=== PATIENT | female | born 1965 | race Caucasian/White ===

== ENCOUNTER → 2016-06-19 | Outpatient (CLI) | payer OTHER ==
[2016-06-19 11:15] LABS: BASO % 0.5 % (0.0-1.0); EOS # 0.1 10*3/uL (0.0-0.4); EOS % 1.3 % (1.0-4.0); HEMATOCRIT 40.8 % (37.0-47.0); LYMPH # 2.2 10*3/uL (1.3-4.4); LYMPH % 27.1 % (27.0-41.0); MEAN CELL VOLUME 83.3 fl (81.0-99.0); MEAN CORPUSCULAR HGB 26.5 pg (27.0-31.0); MEAN CORPUSCULAR HGB CONC 31.9 g/dl (33.0-37.0); MEAN PLATELET VOLUME 11.3 fl (9.6-12.3); MONO # 0.5 10*3/uL (0.1-1.0); MONO % 6.8 % (3.0-9.0); NEUT # 5.1 10*3/uL (2.3-7.9); NEUT % 63.9 % (47.0-73.0); PLATELET COUNT AUTOMATED 302 10*3/uL (130-400); RED CELL DISTRI WIDTH 13.6 % (0-14.5)
[2016-06-19 11:38] LABS: ALBUMIN 3.5 gm/dl (3.1-4.5); BUN 13 mg/dl (7-24); CARBON DIOXIDE 30 mmol/L (21-32); CHLORIDE 100 mmol/L (98-107); GLUCOSE 174 mg/dL (65-99); POTASSIUM 4.3 mmol/L (3.5-5.1); SODIUM 138 mmol/L (136-145); TRIGLYCERIDES 123 mg/dl (<150); VLDL CHOLESTEROL 25 mg/dL (6-40)
[2016-06-19 11:47] LABS: ALKALINE PHOSPHATASE 78 U/L (45-117); BILIRUBIN, TOTAL 0.3 mg/dl (0.2-1.0); CHOLESTEROL 171 mg/dL (<200); EST GLOM FILT AFRICAN AMERICAN > 60 ml/min; FREE T4 1.22 ng/dl (0.76-1.46); HDL CHOLESTEROL 54 mg/dl (40-60); LDL CHOLESTEROL 92 mg/dL (9-159); SGOT/AST 13 IU/L (3-35); SGPT/ALT 23 U/L (12-78); TOTAL PROTEIN 7.4 gm/dL (6.4-8.2)
== END | disposition home or self-care (01) ==
LOC: CARD 05-19 08:30 → LAB 09:31
PROVIDERS: Family Medicine
DX: E11.65 Type 2 diabetes mellitus with hyperglycemia (principal); I10 Essential (primary) hypertension; E78.5 Hyperlipidemia, unspecified; R01.1 Cardiac murmur, unspecified; I34.0 Nonrheumatic mitral (valve) insufficiency; I07.1 Rheumatic tricuspid insufficiency

== ENCOUNTER 2017-01-03 19:21 | Emergency (ER) | payer OTHER ==
[~2017-01-03] VITALS: Ht 157.4 cm; Wt 103.9 kg
[2017-01-03 20:36] LABS: BASO % 0.5 % (0.0-1.0); EOS # 0.1 10*3/uL (0.0-0.4); EOS % 1.6 % (1.0-4.0); HEMATOCRIT 39.6 % (37.0-47.0); HEMOGLOBIN 12.5 g/dl (12.0-16.0); LYMPH # 2.7 10*3/uL (1.3-4.4); MEAN CORPUSCULAR HGB 25.9 pg (27.0-31.0); MEAN CORPUSCULAR HGB CONC 31.6 g/dl (33.0-37.0); MEAN PLATELET VOLUME 10.7 fl (9.6-12.3); MONO # 0.7 10*3/uL (0.1-1.0); MONO % 8.8 % (3.0-9.0); NEUT # 4.5 10*3/uL (2.3-7.9); NEUT % 55.9 % (47.0-73.0); PLATELET COUNT AUTOMATED 279 10*3/uL (130-400); RED BLOOD COUNT 4.83 10*6/uL (4.10-5.10); RED CELL DISTRI WIDTH 13.2 % (0-14.5)
[2017-01-03 20:53] LABS: ALBUMIN 3.1 gm/dl (3.1-4.5); ALKALINE PHOSPHATASE 96 U/L (45-117); BUN 12 mg/dl (7-24); CHLORIDE 100 mmol/L (98-107); CREATININE 0.72 mg/dL (0.55-1.02); LIPASE 133 U/L (73-393); POTASSIUM 4.5 mmol/L (3.5-5.1); SGOT/AST 13 IU/L (3-35); SGPT/ALT 24 U/L (12-78); SODIUM 134 mmol/L (136-145); TOTAL PROTEIN 6.6 gm/dL (6.4-8.2)
[2017-01-03 20:55] LABS: TROPONIN I < 0.015 ng/ml (<0.045)
[2017-01-03 21:03] LABS: BILIRUBIN NEGATIVE (NEGATIVE); BLOOD NEGATIVE (NEGATIVE); CLARITY CLEAR (CLEAR); COLOR YELLOW (YELLOW); GLUCOSE 3+ (NEGATIVE); KETONE NEGATIVE (NEGATIVE); LEUKO ESTERASE NEGATIVE (NEGATIVE); NITRITE NEGATIVE (NEGATIVE); SPECIFIC GRAVITY <= 1.005 (1.005-1.030); UROBILINOGEN 0.2 E.U./dl (0.2-1.0)
[2017-01-03 21:10] LABS: BACTERIA TRACE
[2017-01-03 21:57] VITALS: BP 123/74
== END 2017-01-04 00:04 | disposition home or self-care (01) ==
LOC: ED 19:21
PROVIDERS: Emergency Medicine Emergency Medical Services
DX: E11.65 Type 2 diabetes mellitus with hyperglycemia (principal); I10 Essential (primary) hypertension; Z90.49 Acquired absence of other specified parts of digestive tract; Z98.890 Other specified postprocedural states; Z91.040 Latex allergy status; Z88.8 Allergy status to other drugs, medicaments and biological substances

== ENCOUNTER 2017-11-01 01:02 | Emergency (ER) | payer OTHER ==
[~2017-11-01] VITALS: Ht 157.4 cm; Wt 97.5 kg
--- NOTE | ~2017-11-01 | EKG ---
[place], [place] ELECTROCARDIOGRAM REPORT NAME: TRACEE CAI UNIT #: [id number] ROOM: DOCTOR: EPIPHANY DRAFT REPORT BIRTHDATE: [birth year] [facility] Test Date: 2017-11-01 Test Time: 02:07:44 Pat Name: TRACEE CAI Department: ER Room: Gender: F Cork Mixer: : 1965 Requested By: HORTENCIA DUBOIS Order Number: [id number] Reading MD: Keith Mosqueda MD Measurements Intervals [place] Rate: 90 P: 52 NM: 177 QRS: 6 QRSD: 92 T: 56 QT: 373 QTc: 457 Interpretive Statements Sinus rhythm Anteroseptal infarct, old Electronically Signed On 11-01-2017 10:52:04 PDT by Keith Mosqueda MD CM:EKGRPT:ELECTROCARDIOGRAM REPORT [id number] 1052 HORTENCIA DUBOIS MD EPIPHANY DRAFT REPORT HORTENCIA DUBOIS MD
[2017-11-01 01:06] VITALS: BP 151/73
[2017-11-01 02:16] LABS: BASO % 0.4 % (0.0-1.0); EOS # 0.1 10*3/uL (0.0-0.4); EOS % 1.3 % (1.0-4.0); HEMATOCRIT 40.8 % (37.0-47.0); LYMPH # 2.2 10*3/uL (1.3-4.4); LYMPH % 22.8 % (27.0-41.0); MEAN CELL VOLUME 84.5 fl (81.0-99.0); MEAN CORPUSCULAR HGB 26.9 pg (27.0-31.0); MEAN CORPUSCULAR HGB CONC 31.9 g/dl (33.0-37.0); MEAN PLATELET VOLUME 10.7 fl (9.6-12.3); MONO # 0.7 10*3/uL (0.1-1.0); MONO % 7.9 % (3.0-9.0); NEUT # 6.3 10*3/uL (2.3-7.9); NEUT % 67.3 % (47.0-73.0); PLATELET COUNT AUTOMATED 260 10*3/uL (130-400); RED BLOOD COUNT 4.83 10*6/uL (4.10-5.10); RED CELL DISTRI WIDTH 13.5 % (0-14.5); WHITE BLOOD COUNT 9.4 10*3/uL (4.8-10.8)
[2017-11-01 02:31] LABS: ALBUMIN 3.2 gm/dl (3.1-4.5); ALKALINE PHOSPHATASE 92 U/L (45-117); BUN 8 mg/dl (7-24); CHLORIDE 106 mmol/L (98-107); CREATININE 0.73 mg/dL (0.55-1.02); LIPASE 107 U/L (73-393); POTASSIUM 4.2 mmol/L (3.5-5.1); SGOT/AST 17 IU/L (3-35); SGPT/ALT 22 U/L (12-78); SODIUM 141 mmol/L (136-145); TOTAL PROTEIN 7.1 gm/dL (6.4-8.2)
[2017-11-01] MEDS ORDERED: ZITHROMAX250 MG PO (03:26)
[2017-11-01] MEDS ORDERED: PREDNISONE10 MG PO (03:26)
[2017-11-01] MEDS ORDERED: Phenergan6.25 MG/5 PO (03:26)
== END 2017-11-01 04:05 | disposition home or self-care (01) ==
LOC: ED 01:02
PROVIDERS: Emergency Medicine Emergency Medical Services
DX: J20.9 Acute bronchitis, unspecified (principal); J01.90 Acute sinusitis, unspecified; E11.9 Type 2 diabetes mellitus without complications; Z91.040 Latex allergy status

== ENCOUNTER 2018-05-02 21:40 | Emergency (ER) | payer OTHER ==
[~2018-05-02] VITALS: Ht 157.4 cm; Wt 104.3 kg
[~2018-05-02 21:40] MED LIST: PREDNISONE10 MG PO; Phenergan6.25 MG/5 PO; ZITHROMAX250 MG PO
[2018-05-02 21:43] VITALS: BP 142/72
[2018-05-02] MEDS ORDERED: PREDNISONE20 M1 PO (22:17)
== END 2018-05-02 22:19 | disposition home or self-care (01) ==
LOC: ED 21:40
DX: S40.862A Insect bite (nonvenomous) of left upper arm, initial encounter (principal); S40.861A Insect bite (nonvenomous) of right upper arm, initial encounter; L50.8 Other urticaria; Z90.49 Acquired absence of other specified parts of digestive tract; Z98.890 Other specified postprocedural states; Z79.899 Other long term (current) drug therapy; Z91.040 Latex allergy status; W57.XXXA Bitten or stung by nonvenomous insect and other nonvenomous arthropods, initial encounter; Y93.89 Activity, other specified; Y92.89 Other specified places as the place of occurrence of the external cause; Y99.9 Unspecified external cause status

== ENCOUNTER 2018-06-28 13:55 | Inpatient (IN) | payer OTHER ==
[~2018-06-28] VITALS: Ht 157.4 cm; Wt 104.3 kg
--- NOTE | ~2018-06-28 | PR ---
[place], [place] PROGRESS NOTE NAME: TRACEE CAI UNIT #: [id number] ROOM: 310 DOCTOR: CHERYL HOPKINS MD BIRTHDATE: [birth year] DOS: 07/03/2018 CHIEF COMPLAINT: "I think I'm feeling a little better." SUMMARY OF THE VISIT: The patient was interviewed in the dining area. She had already eaten her breakfast and was engaging in conversation with several female peers. She stopped this conversation to engage with me and stated that she is sleeping a little better. She is still having the horrible leg and foot cramps that are very bothersome to her. Otherwise, she reports that she feels that her mood is beginning to lift and she is becoming more hopeful that the future will hold better things for her. MENTAL STATUS: She is alert and oriented with some time gaps, but overall fairly intact. Mood does seem to be now trending towards euthymia. Affect is more appropriate. There is no joe or hypomania. No gross psychosis. Short term, intermediate, and long-term memory for the most part are intact. PLAN: I will continue her current psychotropics. I will increase her Neurontin from 100 mg at bedtime to 100 t.i.d. believing that this will be much more effective as a pain relief issue and make her more comfortable. Regarding the cramping, I defer to the hospitalist. Engage her in individual and taylor milieu activity, returning to the least restrictive environment when psychiatrically stable. CHERYL HOPKINS MD CM:PNTRANS [id number] CHERYL HOPKINS MD 07/03/182108 interface
--- NOTE | ~2018-06-28 | PR ---
[place], [place] PROGRESS NOTE NAME: TRACEE CAI UNIT #: [id number] ROOM: 310 DOCTOR: CHERYL HOPKINS MD BIRTHDATE: [birth year] DOS: 07/06/2018 INTERVAL NOTE CHIEF COMPLAINT: "I think I am feeling a little better, thank you for everything you have done for me." SUMMARY OF THE VISIT: The patient was interviewed as she was finishing her breakfast. She engaged readily in conversation, reporting that overall her sleep and appetite have normalized and that she is feeling much better. She still complains of some minor pain issues, but otherwise notes no other issues. MENTAL STATUS: She is alert and oriented with mild time gaps. Mood does seem to be strongly trending towards euthymia. I do not see the presence of hypomania or joe and likewise do not see the presence of auditory or visual hallucinations, delusions or paranoia. Short-term memory has just mild gaps, but overall she is fairly well intact. PLAN: I will increase her Neurontin from 100 mg t.i.d. to 200 mg t.i.d. to further stabilize her mood, reduce anxiety and combat chronic pain issues, engage in individual and taylor milieu activity, returning to the least restrictive environment when psychiatrically stable. CHERYL HOPKINS MD CM:PNTRANS 0830 [id number] CHERYL HOPKINS MD 07/06/18 1406 interface
--- NOTE | ~2018-06-28 | PR ---
[place], [place] PROGRESS NOTE NAME: TRACEE CAI UNIT #: [id number] ROOM: 309 DOCTOR: CHERYL HOPKINS MD BIRTHDATE: [birth year] DOS: 07/01/2018 CHIEF COMPLAINT: "Oh, I just feel so discombobulated. I can't think my memory is not right and I'm not sleeping." SUMMARY OF THE VISIT: The patient was interviewed as she was sitting in the dining area with several female peers. She engaged readily in conversation. She reports to me that she could not tell me exactly when she got here and was having a hard time formulating her thoughts, which she states has been happening more and more helping lead to her admission ultimately to the hospital. She does report that she is not sleeping well and was not sleeping well at home. Additionally, she went at length to discuss her current living situation and is very hopeful that between her daughter's help and criminal justice social worker help that a more pleasant living situation will be able to be provided for her. She convincingly denies any medication side effects at the present time. MENTAL STATUS: She is alert and oriented to self, place, not necessarily time. She is rather fragmented and disjointed, very anxious, and almost seemed to be hyperventilating at one point. There was no hypomania or joe. There were no overt auditory or visual hallucinations. There are memory gaps noted, which could be related to her anxiety level. PLAN: I will go ahead and add Atarax 25 mg t.i.d. as a non-addictive antianxiety agent. I will add Rozerem 8 mg at bedtime p.r.n. as a non-addicting sleep aid, but I do not want to utilize too much medication at this point because she does have the Cymbalta 60 mg at bedtime also on board. We will engage in individual and taylor milieu activity, returning to the least restrictive environment when psychiatrically stable. CHERYL HOPKINS MD CM:PNTRANS [id number] CHERYL HOPKINS MD 07/01/18 234 interface
--- NOTE | ~2018-06-28 | PR ---
[place], [place] PROGRESS NOTE NAME: TRACEE CAI UNIT #: [id number] ROOM: 310 DOCTOR: CHERYL HOPKINS MD BIRTHDATE: [birth year] DOS: 07/02/2018 CHIEF COMPLAINT: "I am still not sleeping and if I have to go back to that place, I might as well be ." SUMMARY OF THE VISIT: The patient was interviewed as she was sitting in the dining area. She had already eaten her breakfast. She engaged readily in conversation. She was mainly fixated on the fact that her anxiety and sleep still remain rather poor, although improving. She also was very fixated on not returning back to her current living situation. She is aware that director social welfare here in conjunction with her daughter are actively k at finding her options and is comforted somewhat by this fact. She convincingly denies medication side effects. MENTAL STATUS: She remains alert and oriented to person, place and time. Mood does still seem to be depressed with anxious overtones. She does still endorse suicidal thoughts. There is no hypomania, joe or psychosis. Memory for the most part is fully intact. PLAN: I will go ahead and continue to increase her psychotropic regimen, increasing the Cymbalta from 60 mg a day to 90 mg a day given in a 30 mg dose in the morning and 60 mg at bedtime. I will increase her Atarax from 25 mg 3 times daily to 50 mg 3 times daily in an effort to curb her anxiety level. The patient continues to complain of significant Charley horses in her calves and in her feet. I will check a magnesium level this morning and defer to the hospitalist for any further management. We will engage her in individual and taylor milieu activity, returning to the least restrictive environment when psychiatrically stable. CHERYL HOPKINS MD CM:PNTRANS [id number] CHERYL HOPKINS MD 07/03/18 0013 interface
--- NOTE | ~2018-06-28 | PR ---
[place], [place] PROGRESS NOTE NAME: TRACEE CAI UNIT #: [id number] ROOM: 309 DOCTOR: MATY ARAIZA CNP BIRTHDATE: [birth year] DOS: 06/30/2018 CHIEF COMPLAINT: "I am sorry, but I don't remember your name." SUMMARY OF VISIT: The patient was interviewed as she sat in the dining room. She engaged readily in conversation with me. The patient reports that she has no current suicidal ideation; however, she knows if she has to go back to her living arrangements, she will be suicidal again and plans to take a bunch of pills. The patient reports that she slept well and that her appetite has been good. Staff reports that the patient has had no behaviors. MENTAL STATUS EXAMINATION: The patient is alert and oriented to person, place and time. She is pleasant and cooperative. No joe or hypomania noted. No delusions or paranoia noted. No psychotic symptoms noted. No auditory or visual hallucinations noted. Her mood is more euthymic today. Affect is appropriate. Short and long-term memories are intact. PLAN: I increased the patient's Cymbalta to 60 mg at bedtime, also have put in a consult for Dr. Basurto to meet with the patient. We will continue to encourage the patient to engage in individual and taylor milieu activity, continue fall and safety precautions. Plan is to return the patient to the least restrictive environment when she is considered psychiatrically stable. The patient has been taken off of line of sight due to the fact that she is not currently suicidal. Maty Araiza CNP CM:PNTRANS [id number] MATY ARAIZA CNP 06/30/182240 interface
--- NOTE | ~2018-06-28 | WRIGHTHP ---
[place], [place] PATIENT HISTORY AND PHYSICAL EXAM [id number] #: [id number] ROOM: 309 DOCTOR: MATY ARAIZA CNP BIRTHDATE: [birth year] DOS: 06/29/2018 HISTORY AND PHYSICAL FOR INITIAL PSYCHIATRIC EVALUATION CHIEF COMPLAINT: "I don't feel suicidal; however, I know I would still take my oxycodone." HISTORY OF PRESENT ILLNESS: This is a 53-year-old white female who presented to the Emergency Room with complaints of feeling depressed and having suicidal ideations periodically over the last few weeks. The patient had shared her thoughts with her daughter who recommended that she come to the Emergency Room for evaluation. The patient reported that over the past month, her depression has increased as she feels her medication is not working. She reports that she tried to get in to her psychiatrist, but was unable to get an appointment until August. She reported that she had a recent loss of emotional support and has had issues with her landlord. She does report that she does not consistently take her medication as prescribed. The patient reports that she feels less anxious at this time; however, she knows that she has to return to her apartment and she knows that this will cause her increased depression and anxiety. She reports that her daughter is trying to find her different living arrangements. The patient was admitted to the Behavioral Health Unit to rule out any further organic factors and attempt to stabilize her on medication. The patient will be encouraged to engage in individual and taylor milieu activity and to return to the least restrictive environment when she is considered psychiatrically stable. PAST MEDICAL AND SURGICAL HISTORY: Remarkable for hyperglycemia, type 2 diabetes, acute sinusitis, bronchitis, cholecystectomy, left eye surgery, tonsil and adenoidectomy and a bowel resection. SOCIAL HISTORY: The patient does socially use alcohol. She denies any illicit drug use. It is unclear whether she uses tobacco products or not. STRENGTHS: The patient is ambulatory and has good verbal skills. WEAKNESSES: Poor coping skills, recent loss of emotional support. MENTAL STATUS: The patient is alert and oriented to person, place and time. She is pleasant and cooperative. No overt joe or hypomania noted. No delusions or paranoia noted. No psychotic symptoms noted. No auditory or visual hallucinations noted. The patient's mood is depressed. Her affect is congruent with mood. Short and long-term memory are intact. Thought process is normal. Her insight and judgment are fair. DIAGNOSIS: Major depressive disorder, recurrent. PLAN: I have discontinued her trazodone and Prozac. Cymbalta 30 mg at bedtime will be started this evening. I will start vitamin D 50,000 units once weekly due to low vitamin D level. Hemoglobin A1c is elevated at 11.3. We will have the medical doctor for followup on this. We will consult Dr. Basurto for psychological counseling. We will encourage the patient to engage in individual [place], [place] PATIENT HISTORY AND PHYSICAL EXAM NAME: TRACEE CAI UNIT #: [id number] ROOM: [facility] DOCTOR: MATY ARAIZA CNP BIRTHDATE: [birth year] and taylor milieu and activity. We will continue fall and safety precautions. Plan is to return the patient to the least restrictive environment when she is considered psychiatrically stable. Maty Araiza CNP CM:HISPHYS:PATIENT HISTORY AND PHYSICAL EXAMINATION [id number] MATY ARAIZA CNP 06/29/18 1234 interface
--- NOTE | ~2018-06-28 | PR ---
[place], [place] PROGRESS NOTE NAME: TRACEE CAI UNIT #: [id number] ROOM: 310 DOCTOR: CHERYL HOPKINS MD BIRTHDATE: [birth year] DOS: 07/05/2018 CHIEF COMPLAINT: "Will you please call my daughter so she knows what's happening. I get things so mixed up in my head." SUMMARY OF THE VISIT: The patient was interviewed while she was sitting with several female peers. She had already eaten her breakfast. She reports that she is sleeping well and eating well and does feel that the current medication regimen is much more effective than the previous one. She voices no side effects from the medications. MENTAL STATUS: She is alert and oriented with minor time gaps. Mood does seem to be strongly trending towards euthymia. Affect is much more appropriate. There are no suicidal thoughts, homicidal thoughts, or self-injurious thoughts. There is no hypomania or joe. There are no gross psychotic symptoms. Short term memory has some mild gaps, otherwise she is relatively intact. PLAN: I will maintain her current psychotropic and continue to monitor for risk, benefit. I will renew her p.r.n. Ativan should she require intervention. custodial services manager will reach out to the patient's daughter to further discuss discharge planning and aftercare arrangements. Will engage in individual and taylor milieu activity, returning then to the least restrictive environment when psychiatrically stable. CHERYL HOPIKNS MD CM:PNTRANS [id number] CHERYL HOPKINS MD 07/05/18 1121 interface
--- NOTE | ~2018-06-28 | CON ---
[place], [place] REPORT OF CONSULTATION NAME: [id number] UNIT #: [id number] ROOM: 309 DOCTOR: PHD KATHIA BASURTO BIRTHDATE: [birth year] DOS: 07/01/2018 HISTORY OF PRESENT ILLNESS: The patient is a 53-year-old female referred by Dr. Easton for counseling. At the present time, the patient is on the [facility] Unit at [facility]. She lives alone and does not work. She has two daughters. She denied alcohol, tobacco and illegal drug use. PAST MEDICAL HISTORY: Chronic constipation, essential hypertension, GERD, hyperlipidemia, morbid obesity, type 2 diabetes. MEDICATIONS: Vitamin D, Neurontin, Glucophage, Vistaril, Cymbalta, Esidrix, Zocor, Zestril, Prilosec, Humalog, Lantus, Tylenol, Geodon, Rozerem, Ativan. The patient was sitting comfortably, in no apparent distress. She is awake, alert and oriented to person, place and generally to time. Mood was depressed and affect was blunted. She denied current suicidal ideation, plan and intent, but stated that she is very nervous about returning home due to issues with her landlord and could not guarantee she would not overdose on her medications. She denied homicidal ideation. Speech and language within normal limits conversationally. Thought process was circumstantial. There is no evidence of hallucinations or delusions. She reports grieving over her emotional support dog as well as a friend who 3 years ago. She also is concerned about one of her daughters and about returning home and the possibility of having to relinquish her cats at the request of her landlord. She has a counselor in [place] and also follows up with her. She also follows up there for her psychiatric medications as well. Discussed way she can set appropriate boundaries and processed her grief. Utilized CBT and supportive therapy interventions, the patient appeared to benefit. DIAGNOSIS: Major depressive disorder, recurrent, severe. PLAN: I will continue to follow the patient while she is on the [facility] Unit as needed. Maren Basurto, PhD CM:CONSTR:REPORT OF CONSULTATION 1728 07/02/18 0509 interface
--- NOTE | ~2018-06-28 | DS ---
[place], [place] DISCHARGE SUMMARY [id number] UN[facility] #: [id number] ROOM: 310 DOCTOR: CHERYL HOPKINS MD BIRTHDATE: [birth year] DOS: 07/07/2018 CHIEF COMPLAINT: "I don't feel suicidal. However, I know I would still take my oxycodone." HISTORY OF PRESENT ILLNESS: This is a 53-year-old white female who presented to the Emergency Room at [facility] with feelings of increased depression with suicidal ideation. This has been occurring over the last several weeks. The patient shared her thoughts with her daughter who recommended that the patient come to the Emergency Room for evaluation. Over the last month, the patient reports that her depression has worsened in intensity and her current medication regimen is not working. She tried to get an appointment with her current psychiatrist, but was unable to do so. She reports multiple losses and poor emotional supports other than her daughter. The patient reports poor sleep and appetite, anergia, anhedonia, hopeless, helpless feelings, crying spells, and inability to cope. The patient was admitted to rule out organic factors and to stabilize on medication. SUMMARY OF HOSPITAL COURSE: The patient had her current regimen of medications discontinued. This included trazodone and Prozac due to ineffectiveness. Cymbalta 30 mg at bedtime was started. Vitamin D was also started because she had a low vitamin D level on admission. The Cymbalta dose was gradually increased from 30 mg at bedtime to 30 mg in the morning and 60 mg at bedtime with excellent results. This impacted positively on her depression, her pain and her anxiety. Additionally, Vistaril 50 mg 3 times daily was utilized to decrease her anxiety with the nonaddicting agent and Rozerem 8 mg at bedtime was utilized to further aid sleep. With this combination of medication, the patient's mood improved dramatically. Sleep and appetite normalized. She was able to attend to her ADLs. She engaged readily in all forms of activities and therapeutic work on the unit. She voiced positive plans for the future and was anxious to be able to return back home. The patient convincingly denied suicidal thoughts, homicidal thoughts or any self-injurious thoughts. MENTAL STATUS EXAMINATION UPON DISCHARGE: The patient is alert and oriented to person, place, very approximate to time. Mood does seem to be strongly trending towards euthymia. Affect is much more appropriate. There is no joe, hypomania or psychosis. As mentioned previously, there are no suicidal, homicidal, or self-injurious thoughts. There are no medication side effects. DISCHARGE DIAGNOSES: Major depression, recurrent, severe; dysthymic disorder. DISPOSITION: All of her prescriptions have been e-scribed to [facility]. At the time of discharge, she was medically and psychiatrically stable. [place], [place] DISCHARGE SUMMARY NAME: TRACEE CAI UNIT #: [id number] ROOM: 310 DOCTOR: CHERYL HOPKINS MD BIRTHDATE: [birth year] CHERYL HOPKINS MD CM:DISCHMANDIE [id number] CHERYL HOPKINS MD 07/07/18 1617 interface
--- NOTE | ~2018-06-28 | PR ---
[place], [place] PROGRESS NOTE NAME: TRACEE CAI UNIT #: [id number] ROOM: 310 DOCTOR: CHERYL EASTON MD BIRTHDATE: [birth year] DOS: 07/04/2018 CHIEF COMPLAINT: "I think I am starting to feel a little bit better Dr. Easton." SUMMARY OF THE VISIT: The patient was interviewed as she was sitting in the back of the dining area. She was engaging in conversation with several female peers that were sitting at her table. As I approached, she reached out to shake my hand and engaged readily in conversation. She does seem to be more spontaneous and does seem to be much less depressed. She reports tolerating the current medication regimen well without sedation, somnolence, extrapyramidal symptoms or tardive dyskinesia. MENTAL STATUS: She is alert and oriented with some time gaps. She still has some minor processing difficulty, but this seems to be gradually improving. Mood does seem to be strongly trending towards euthymia. Affect is much more appropriate. There are no symptoms suggestive of hypomania or oje and there are no gross psychotic symptoms. Memory does have mild gaps, but for the most part is intact. PLAN: I will maintain her current psychotropic regimen, continue to engage in individual and taylor milieu activity with the ultimate plan to return to the least restrictive environment when psychiatrically stable. CHERYL EASTON MD CM:PNTRANS 1044 CHERYL EASTON MD 07/04/18 1044 interface
[~2018-06-28 13:55] MED LIST changes: +PREDNISONE20 M1 PO
[2018-06-28 13:56] VITALS: BP 171/87
[2018-06-28 14:54] LABS: BASO % 0.4 % (0.0-1.0); EOS # 0.1 10*3/uL (0.0-0.4); HEMATOCRIT 43.4 % (37.0-47.0); LYMPH # 2.2 10*3/uL (1.3-4.4); LYMPH % 23.9 % (27.0-41.0); MEAN CELL VOLUME 84.9 fl (81.0-99.0); MEAN CORPUSCULAR HGB 27.4 pg (27.0-31.0); MEAN CORPUSCULAR HGB CONC 32.3 g/dl (33.0-37.0); MEAN PLATELET VOLUME 11.5 fl (9.6-12.3); MONO # 0.8 10*3/uL (0.1-1.0); MONO % 8.3 % (3.0-9.0); NEUT # 6.1 10*3/uL (2.3-7.9); NEUT % 66.1 % (47.0-73.0); PLATELET COUNT AUTOMATED 299 10*3/uL (130-400); RED BLOOD COUNT 5.11 10*6/uL (4.10-5.10); RED CELL DISTRI WIDTH 13.1 % (0-14.5); WHITE BLOOD COUNT 9.2 10*3/uL (4.8-10.8)
[2018-06-28 15:00] LABS: BILIRUBIN NEGATIVE (NEGATIVE); BLOOD NEGATIVE (NEGATIVE); CLARITY CLEAR (CLEAR); COLOR YELLOW (YELLOW); GLUCOSE 3+ (NEGATIVE); KETONE NEGATIVE (NEGATIVE); LEUKO ESTERASE NEGATIVE (NEGATIVE); NITRITE NEGATIVE (NEGATIVE); SPECIFIC GRAVITY 1.015 (1.005-1.030)
--- NOTE | 2018-06-28 15:10 | NUR ---
HOME MEDS VERIFIFED WITH MILLIE AT [facility] IN [place]
[2018-06-28 15:15] LABS: BACTERIA 1+
[2018-06-28 15:19] LABS: URINE AMPHETAMINES < 1000 (1000ng/ml); URINE BARBITURATES < 200 (200ng/ml); URINE CANNABINOIDS (THC) < 50 (50ng/ml); URINE COCAINE < 300 (300ng/ml); URINE OPIATES < 300 (300ng/ml)
[2018-06-28 15:20] LABS: ALBUMIN 3.5 gm/dl (3.1-4.5); ALKALINE PHOSPHATASE 118 U/L (45-117); BUN 17 mg/dl (7-24); CHLORIDE 99 mmol/L (98-107); CREATININE 0.86 mg/dL (0.55-1.02); POTASSIUM 4.5 mmol/L (3.5-5.1); SGOT/AST 15 IU/L (3-35); SGPT/ALT 26 U/L (12-78); SODIUM 134 mmol/L (136-145); TOTAL PROTEIN 7.3 gm/dL (6.4-8.2)
[2018-06-28 15:22] LABS: ACETAMINOPHEN (TYLENOL) < 5.0 ug/ml (10-30); ETHYL ALCOHOL < 3.0 mg/dl (<3)
[2018-06-28 15:28] LABS: URINE BENZODIAZEPINES > 200 (200ng/ml); URINE METHADONE < 300 (300ng/ml)
[2018-06-28 15:37] LABS: URINE PHENCYCLIDINE < 25 (25ng/ml)
--- NOTE | 2018-06-28 16:02 | NUR ---
psychiatric assessment: met with client and her daughter, client has been very depressed for about a week, her daughters service dog who stays with her while the daughter works suddenly and client has been very distraught, client is active at [facility] and sees Thierno Ramirez [facility] for her medications and she sees a therapist, she is tearful, no psychosis, she is her own person, she is a&ox4, she is having suicidal thoughts and had a plan to take an overdose, she has never done this before and has no previous suicidal ideation, she has been sad and not sleeping well. she does take her medications, client is fearful that the landlord is going to make her get rid of her other animals and then she said she would kill herself. her daughter is here with her and is supportive. i did speak with manuela kaur here and will refer her to [facility], i did call and spoke with rafael dominguez and she will call me back.
--- NOTE | 2018-06-28 17:56 | NUR ---
PATIENT IN ROOM AT THIS TIME IN NO DISTRESS. GIVEN PILLOW AND BLANKET.
[2018-06-28] MEDS ORDERED: PROZAC20 MG PO (18:15)
[2018-06-28] MEDS ORDERED: TRAZODONE50 MG PO (18:19)
[2018-06-28] MEDS ORDERED: HUMALOG100 UNIT/2 SQ (18:19)
[2018-06-28] MEDS ORDERED: OMEPRAZOLE20 M2 PO (18:20)
[2018-06-28] MEDS ORDERED: LISINOPRIL40 MG PO (18:21)
[2018-06-28] MEDS ORDERED: TRESIBA FL100 UNIT/1 SC (18:22)
[2018-06-28] MEDS ORDERED: METFORMIN ER500 MG PO (18:23)
[2018-06-28] MEDS ORDERED: PRAVACHOL40 MG PO (18:24)
[2018-06-28] MEDS ORDERED: HYDROCHLOROTHIA25 M1 PO (18:24)
[2018-06-28 18:41] VITALS: BP 148/76
--- NOTE | 2018-06-28 18:58 | NUR ---
TRACEE CAI a 53 year old F admitted via wheel chair from the ADMITTING as a voluntary admission. Arrived on unit at 1845. ALLERGIES: LATEX, TRULICITY. Vital signs are: 97.9-84-18 148/76. The client signed the following forms with stated understanding: Authorization For The Release of Medical Information, Clothing List, Consent to Voluntary Admission and Hospitalization, Consent and Release Forms/Receipt of Rights, Acknowledgement of Advance Directive Information, Behavioral Health Consent Form, and Informed Consent of Medications. Admitted under the services of Dr. KELLIE HENDRIX,[facility]. A search was conducted and hazardous articles were removed. Client was oriented to the unit. GIOVANI GREGORY
--- NOTE | 2018-06-28 19:05 | NUR ---
PHYSICAL THERAPY Nursing screen received. PT orders also received. Thank you. Gini Kurtz,PT
[2018-06-28 20:00] VITALS: BP 145/77
--- NOTE | 2018-06-28 20:55 | NUR ---
Talked with Romy Araiza CNP,regarding patient's suicide score and order for line of sight was given.
--- NOTE | 2018-06-29 04:51 | NUR ---
Patient slept approx.5 1/2 hrs throughout shift. Line of sight continued and maintained.
[2018-06-29 06:34] LABS: BASO % 0.4 % (0.0-1.0); EOS # 0.1 10*3/uL (0.0-0.4); EOS % 1.3 % (1.0-4.0); HEMATOCRIT 45.7 % (37.0-47.0); HEMOGLOBIN 14.5 g/dl (12.0-16.0); LYMPH # 3.4 10*3/uL (1.3-4.4); MEAN CELL VOLUME 85.4 fl (81.0-99.0); MEAN CORPUSCULAR HGB 27.1 pg (27.0-31.0); MEAN CORPUSCULAR HGB CONC 31.7 g/dl (33.0-37.0); MEAN PLATELET VOLUME 11.4 fl (9.6-12.3); MONO # 0.8 10*3/uL (0.1-1.0); MONO % 8.3 % (3.0-9.0); NEUT # 4.7 10*3/uL (2.3-7.9); NEUT % 51.8 % (47.0-73.0); PLATELET COUNT AUTOMATED 347 10*3/uL (130-400); RED BLOOD COUNT 5.35 10*6/uL (4.10-5.10); RED CELL DISTRI WIDTH 13.2 % (0-14.5)
[2018-06-29 07:07] LABS: ALBUMIN 3.5 gm/dl (3.1-4.5); ALKALINE PHOSPHATASE 108 U/L (45-117); BUN 17 mg/dl (7-24); CHLORIDE 102 mmol/L (98-107); CHOLESTEROL 200 mg/dL (<200); CREATININE 0.77 mg/dL (0.55-1.02); HDL CHOLESTEROL 41 mg/dl (40-60); LDL CHOLESTEROL 125 mg/dL (9-159); POTASSIUM 3.9 mmol/L (3.5-5.1); SGOT/AST 15 IU/L (3-35); SGPT/ALT 27 U/L (12-78); SODIUM 137 mmol/L (136-145); TOTAL PROTEIN 7.4 gm/dL (6.4-8.2); TRIGLYCERIDES 168 mg/dl (<150); VLDL CHOLESTEROL 34 mg/dL (6-40)
[2018-06-29 07:44] VITALS: BP 139/72
[2018-06-29 08:01] LABS: VITAMIN D, 25-HYDROXY 20.9 ng/mL (30-100)
--- NOTE | 2018-06-29 09:59 | NUR ---
psychosocial hx completed.
--- NOTE | 2018-06-29 10:00 | NUR ---
PHYSICAL THERAPY PATIENT SEEN TODAY ON U AND FOUND TO BE UP AD [facility] WITH NO PT NEEDS IDENTIFIED AT THIS TIME. STAFF CONFIRMS SHE IS MOBILE WITHOUT ISSUES. THANK YOU FOR REFERRAL ESTEPHANIA GALVEZ PT
--- NOTE | 2018-06-29 11:47 | NUR ---
AM GROUP/EXERCISES/GAMES PT ATTENDED AND PARTICIPATED IN ALL ACTIVITY'S. PT PLEASANT AND ON TASK, INTERACTIVE WITH PEERS. PT DID NOT EXPRESS ANY S.I. AT THIS TIME AND WILL CONTINUE TO ATTEND AND PARTICIPATE IN FUTURE GROUP SESSIONS.
--- NOTE | 2018-06-29 16:24 | NUR ---
P: PT ALERT TO PERSON, PLACE, TIME AND SITUATION. PT MED COMPLIANT WITHOUT DIFFICULTY. PT CALM, MOOD IS DEPRESSED. PT DENIES SUICIDAL THOUGHTS AT THIS TIME, VOICES PLAN TO TAKE HYDROCODONE PILLS AT HOME. I: ENCOURAGED PT TO VOICE SUICIDAL THOUGHTS TO STAFF AND CONTRACT FOR SAFETY WITH STAFF, PROVIDED EMOTIONAL SUPPORT AND 1:1 FOR PT TO VOICE FEELINGS R: PT CONVERSES WITH STAFF RE: SUICIDAL THOUGHTS, CONTRACTED FOR SAFETY, PT PLEASANT AND COOPERATIVE WITH STAFF AND PEERS. P: CONTINUE LINE OF SIGHT PER ORDERS, CONTINUE TO PROVIDE EMOTIONAL SUPPORT AND 1:1 FOR PT TO VOICE FEELINGS, ENCOURAGE MED COMPLIANCE AND PROVIDE MED EDUCATION PT AMBULATORY THROUGHOUT UNIT, GAIT STEADY. PT CONTINENT OF BOWEL AND BLADDER.
--- NOTE | 2018-06-29 16:35 | NUR ---
PM GROUP/ANURADHA PAUL/LEISURE SKILLS PT ATTENDED AND PARTICIPATED DURING GROUP. PT PLEASANT AND ON TASK WITH NO S.I. EXPRESSED AT THIS TIME. PT WILL CONTINUE TO ATTEND AND PARTICIPATE IN FUTURE GROUP SESSIONS.
[2018-06-29 20:00] VITALS: BP 139/73
--- NOTE | 2018-06-29 22:00 | NUR ---
Patient alert and oriented x 3. Patient is calm and depressed. Patient denies suicidal ideations at this time. Encouraged patient to tell staff when having those thoughts. No hallucinations/delusions noted at this time. Patient compliant with medications without any difficulty. Provided 1:1 with patient for emotional support. Plan to continue line of sight as per orders. Continue to encourage medication compliance and to provide 1:1 for emotional support. See [facility] flowsheet for further documentation.
--- NOTE | 2018-06-30 00:11 | NUR ---
24 HR chart check completed.
--- NOTE | 2018-06-30 05:28 | NUR ---
Patient slept approx.5 1/2 hrs throughout shift. Line of sight continued and maintained.
[2018-06-30 07:28] VITALS: BP 120/69
--- NOTE | 2018-06-30 09:15 | NUR ---
DR. OSORIO ON FLOOR TO ASSESS PATIENT.
--- NOTE | 2018-06-30 09:54 | NUR ---
P: Patient denies any suicidal ideation. Patients stated that she will start having feelings of suicidal ideation when she goes back to the apartment that she is living in because the landlord does not take care of her house like he takes care of everyone elses house. Pt does have a plan, she states that she would take a whole bottle of Hydrocodone and just go to sleep. Patient did contract for safety with this nurse. Patient stated that she is depressed because there has just been a lot of things in her life that has built up and she just could not take it anymore. I: 1:1 interaction with emotional support provided. Allowed patient to express her feelings and talk about what was on her mind. Provide medications on time with education on each med. Had patient contract for safety due to patient having a plan for suicide. Encourage patient to participate in group activities for socialization and emotional support. R: Patient contracted for safety. Patient stated that she felt so much better after she talked about what made her depressed. Patient expressed how much her daughter is such a great support system. Patient is medication compliant with no difficulties. Patient is attending and participating in group activities. Interacting with peers and staff, laughing and carrying on conversations. P: Continue to have patient contract for safety while she has a suicidal plan and suicidal ideation if she were to leave here. Allow patient to talk about her feelings and express emotions. Encourage patient to continue participating in group therapies and milieu activities. Patient remains to be a Line of Sight due to patients suicide score. Suicide precautions maintained for safety.
--- NOTE | 2018-06-30 12:30 | NUR ---
Shift chart check completed.
[2018-06-30 20:00] VITALS: BP 113/59
--- NOTE | 2018-06-30 22:27 | NUR ---
24 HR chart check completed.
--- NOTE | 2018-06-30 23:13 | NUR ---
P-DEPRESSED, ANXIOUS, SUICIDAL THOUGHTS WHEN DISCHARGED I-PROVIDE 1:1 FOR VENTILATION OF FEELINGS & EMOTIONAL SUPPORT. ASSESS SUICIDAL FEELINGS. DISCUSS ALTERNATE COPING MODES. ADMINISTER MEDICATIONS, MONITOR SLEEP R-MOOD IS DEPRESSED & MILD ANXIETY. STATED THAT SHE IS FEELING BETTER WHILE HERE ON THE UNIT & DENIES PRESENT SUICIDAL FEELINGS WHILE IN THE HOSPITAL & CONTRACTS FOR SAFETY. HOWEVER STATED THAT IF SHE IS DISCHARGED SHE IS AFRAID THAT SHE WILL TRY TO OVERDOSE ON HER MEDICATIONS. UNRECEPTIVE TO DISCUSS ALTERNATE WAYS TO DEAL WITH STRESSORS RELATED TO HER L[place]ORD AT THIS TIME. STATED, "ITS JUST TOO MUCH FOR ME TO DEAL WITH & CAUSES ME TO HAVE ANXIETY". PT IS ALERT & ORIENTED X 4. SPENT LEISURE TIME IN THE DINING ROOM WATCHING TV & INTERACTING WITH PEERS. COMPLIANT TAKING HS MEDICATIONS WHOLE. HS BEDSIDE GLUCOSE WAS 392. RECEIVED 20 UNITS OF COVERAGE. NO SIGNS/SYMPTOMS OF HYPERGLYCEMIA NOTED. P-CONTINUE TO MONITOR & PROVIDE PHYSICAL & EMOTIONAL SUPPORT NEEDED.
--- NOTE | 2018-07-01 01:09 | NUR ---
PT AWAKE AT THIS TIME. REQUESTED & MEDICATED WITH TYLENOL 650 MG FOR C/O MILD BILATERAL FOOT CRAMPING. STATED THAT HER FEET DO THIS ALOT. RATED PAIN 2/10.
--- NOTE | 2018-07-01 05:36 | NUR ---
PT HAS SLEPT PAST 2200 AWAKENING FOR PRN TYLENOL WHICH WAS EFFECTIVE & PT RETURNED TO SLEEP & HAS SLEPT APPROX 5 HOURS.
--- NOTE | 2018-07-01 06:50 | NUR ---
AM BEDSIDE GLUCOSE 139
[2018-07-01 08:05] VITALS: BP 128/72
--- NOTE | 2018-07-01 08:15 | NUR ---
Treatment Plan meeting with Dr. Easton, RN, AT, SW and Informatics Analyst. Plan for discharge at the end of the week. Pt. will return home at discharge.
--- NOTE | 2018-07-01 10:01 | NUR ---
P: Patient stating that she is feeling sad today, a little anxious, and denies any suicidal ideation. Patient states that she will become suicidal if she goes back to her apartment with a plan to take a whole bottle of hydrocodone. Patient did contract for safety. Patient states that she just has had so much happen and she is not happy where she lives. I: 1:1 interaction with emotional support. Assessed for suicidal ideation currently here. Had patient contract for safety. Let patient express why she is feeling sad. Encourage patient to interact with staff and peers. Encourage patient to participate in group activities for socialization and emotional support. Monitor patients food and fluid intake, monitor patient sleep. Encourage patient to use coping skills and relaxation techniques that were taught to her. Provide medications on time with education on each med. R: Patient stated that she felt better after talking out why she has been feeling sad. Patient expressed how she wants to get better for her daughter marianuase she is such a good support system. Patient contract for safety. Patient is eating, sleeping, and drinking adequate amounts of fluids. Patient is utilizing her coping skills and relaxation techniques, patient states that they have been helping. Medication compliant with no difficulties. Participating and interacting in group activities. P: Monitor patients suicidal ideation, plan, and have contract for safety. Monitor intake and sleep schedule. Encourage to continue participating in group activities. Provide medications prescirbed by physician on time with education on each med. 1:1 interaction with emotional support when necessary. Encourage to use coping and relaxation mechanisms when necessary. Q15 minute checks maintained for safety.
--- NOTE | 2018-07-01 10:55 | NUR ---
DR. JAQUEZ ON FLOOR TO ASSESS PATIENT. UPDATE PROVIDED. LET KNOW THAT PATIENT HAS BEEN ASKING FOR TYLENOL EVERY NIGHT FOR NUMB, PAINFUL FEET AND LOWER LEG PAIN. PT STATED THAT SHE USE TO TAKE FLEXEREL AT HOME FOR THE PAIN. PATIENT ALSO STATED THAT SHE HAS NOT HAD A BM SINCE 06/26/18, INFORMED DR. OSORIO; STATED TO GIVE MILK OF MAG PRN AND PRUNE JUICE.
--- NOTE | 2018-07-01 11:03 | NUR ---
PATIENT STATED THAT SHE HAS NOT HAD A BM SINCE 06/26/18. MOM GIVEN PER PRN ORDER. WILL MONITOR FOR EFFECTIVENESS.
--- NOTE | 2018-07-01 11:49 | NUR ---
Spoke with Stefany Tejada [facility] Switchman Supervisor. Stefany and Patient daughter are looking into Adult Day Program for patient to alleviate loneliness. Stefany would like contacted when patient is discharged and provided phone number .
--- NOTE | 2018-07-01 11:57 | NUR ---
AM GROUP/REMINISCING AND SOCIALIZING PT ATTENDED AND PARTICIPATED IN GROUP DISCUSSION. PT OPENLY SHARED MEMORIES OF CHILDHOOD UPBRINGING AND PETS. PT EXPRESSED NO SUICIDAL IDEATIONS DURING GROUP.
--- NOTE | 2018-07-01 13:03 | NUR ---
CLINICALS FAXED TO [facility] AT [phone].
--- NOTE | 2018-07-01 13:28 | NUR ---
Shift chart check completed.
--- NOTE | 2018-07-01 14:30 | NUR ---
Nursing screen received and Occupational THerapy referral received. OT screen completed. Patient is independent in all ADLs and functional mobility. Discharge OT referral. Thank you for this referral. Barbie Weldon OTR/Jasmeet
--- NOTE | 2018-07-01 15:29 | NUR ---
Spoke with Patient Daughter Kelly. Discussed Discharge Plans for the end of the week. Daughter receptive and voiced no questions or concerns.
--- NOTE | 2018-07-01 15:34 | NUR ---
PM GROUP/LEISURE INTERESTS PT ATTENDED AND PARTICIPATED IN GROUP BY PAINTING 2 WATERCOLORS. PT WAS QUIET AND ON TASK AND EXPRESSED NO SUICIDAL IDEATIONS DURING GROUP.
[2018-07-01 20:00] VITALS: BP 121/59; BP 128/72
--- NOTE | 2018-07-01 20:56 | NUR ---
EVENING/CRAFT/MUSIC PT ATTENDED AND PARTICIPATED DURING GROUP. PT PLEASANT AND ON TASK WITH NO S.I. EXPRESSED AT THIS TIME. PT WILL CONTINUIE TO ATTEND AND PARTICIPATE IN FUTURE GROUP SESSIONS.
--- NOTE | 2018-07-01 23:04 | NUR ---
24 HR chart check completed.
--- NOTE | 2018-07-01 23:17 | NUR ---
P-DEPRESSED, ANXIOUS, SUICIDAL THOUGHTS WHEN DISCHARGED I-PROVIDE 1:1 FOR VENTILATION OF FEELINGS & EMOTIONAL SUPPORT. ASSESS SUICIDAL FEELINGS. DISCUSS ALTERNATE COPING MODES. ADMINISTER MEDICATIONS, MONITOR SLEEP R-MOOD IS MILDLY DEPRESSED WITH A BRIGHTER AFFECT & MILD ANXIETY. STATED THAT SHE IS FEELING BETTER WHILE HERE ON THE UNIT & DENIES PRESENT SUICIDAL FEELINGS WHILE IN THE HOSPITAL & CONTRACTS FOR SAFETY. HOWEVER STATED THAT IF SHE IS DISCHARGED SHE IS AFRAID THAT SHE WILL TRY TO OVERDOSE ON HER MEDICATIONS. UNRECEPTIVE TO DISCUSS ALTERNATE WAYS TO DEAL WITH STRESSORS RELATED TO HER L[place] AT THIS TIME. PT IS ALERT & ORIENTED X 4. SPENT LEISURE TIME IN THE DINING ROOM WATCHING TV & INTERACTING WITH PEERS. COMPLIANT TAKING HS MEDICATIONS WHOLE. HS BEDSIDE GLUCOSE WAS 366. RECEIVED 20 UNITS OF COVERAGE. NO SIGNS/SYMPTOMS OF HYPERGLYCEMIA NOTED. P-CONTINUE TO MONITOR & PROVIDE PHYSICAL & EMOTIONAL SUPPORT NEEDED.
--- NOTE | 2018-07-02 05:19 | NUR ---
PT HAS SLEPT PAST 2300
--- NOTE | 2018-07-02 06:24 | NUR ---
AM BEDSIDE GLUCOSE 91
[2018-07-02 07:42] VITALS: BP 122/67
--- NOTE | 2018-07-02 07:50 | NUR ---
DR. OSORIO ON FLOOR TO SEE PATIENT. DR. ANGELO NOTIFIED OF PATIENT STILL NOT HAVING A BM SINCE 06/26/18 AND DID NOT GET A DOSE AT HS YESTERDAY OF PRN MOM. DR. ANGELO STATED TO GIVE ANOTHER DOSE OF MOM AFTER PATIENT WAS DONE EATING BREAKFAST AND TO NOTIFY IF EFFECTIVE OR NOT.
--- NOTE | 2018-07-02 08:00 | NUR ---
Treatment Plan meeting with Dr. Easton, RN, AT, SW and Knife Machine Operator. Plan for discharge at the end of the week, beginning of next week. Pt. to return home.
--- NOTE | 2018-07-02 08:47 | NUR ---
MOM GIVEN AT THIS TIME PER PRN ORDERS.
--- NOTE | 2018-07-02 10:10 | NUR ---
CALLED [phone] FOR DR. OSORIO, DR. HERRERA ANSWERED, NOTIFIED OF DR. HOPKINS WANTING TO INFORM THAT PATIENT IS COMPLAINING OF [place]-HORSE LIKE PAINS AT NIGHT IN BILATTERAL CALFS; DR. HOPKINS DID HAVE A MAGNESIUM LEVEL AND THE LAB JUST CAME DOWN AT THIS TIME DO HER LABS.
--- NOTE | 2018-07-02 11:00 | NUR ---
CALLED [phone] FOR DR. OSORIO, RESIDENT DR. HERRERA ANSWERED. NOTIFIED OF PATIENTS MAGNESIUM LEVEL COMING BACK AT 2.3. NO NEW ORDERS AT THIS TIME.
--- NOTE | 2018-07-02 11:20 | NUR ---
P: PATIENT STATING THAT SHE IS NOT SUICIDAL AT THIS TIME. DENIES BEING DEPRESSED. CONTINUES TO STATE THAT IF SHE LEAVES HERE AND GOES BACK TO HER APARTMENT THEN SHE WILL BECOME SUICIDAL AND WILL TAKE PILLS. PATIENT STATING THAT SHE FEELS REALLY GOOD TODAY JUST TIRED BECAUSE SHE HAS NOT GOTTEN MUCH SLEEP DUE TO THE CRAMPING HER CALFS DURING THE NIGHT. I: HAD PATIENT CONTRACT FOR SAFETY WHILE ON THE UNIT. 1:1 INTERACTION WITH EMOTIONAL SUPPORT PROVIDED. ALLOWED PATIENT TO EXPRESS WHY SHE IS FEELING SUICIDAL IF SHE GOES BACK HOME. ENCOURAGE PATIENT TO PARTICIPATE IN GROUP FOR SOCIALIZATION AND EMOTIONAL SUPPORT. ENCOURAGE TO INTERACT WITH PEERS AND STAFF. PROVIDE MEDICATIONS ON TIME WITH EDUCATION ON EACH MED. ENCOURAGE TO STAY AWAKE DURING THE DAY SO SHE WILL REST BETTER AT NIGHT. NOTIFIED DOCTORS ABOUT PATIENT HAVING CRAMPING DURING THE NIGHT, SEE NOTES FOR MORE INFO. R: PATIENT CONTRACT FOR SAFETY. PATIENT STATING THAT SHE JUST DOES NOT WANT TO GO BACK TO THAT ENVIRONMENT, IT MAKES HER DEPRESSED. PATIENT STATED THAT SHE DID NOT WANT TO PARTICIPATE IN MORNING GROUP BECAUSE SHE WAS TOO TIRED. PATIENT WAS FALLING ASLEEP AT THE TABLE. PATIENT WENT TO LAY DAY FOR A HALF AN HOUR. PATIENT INTERACTING WITH PEERS AND STAFF, LAUGHING AND ENGAGING IN COVERSATION. MEDICATION COMPLIANT WITH NO DIFFICULTIES. EATING AND DRINKING ADEQUATELY. P: CONTINUE TO HAVE PATIENT CONTRACT FOR SAFETY DUE TO EXPRESSING SUICIDAL IDEATION AND PLAN IF SHE IS TO GO HOME. 1:1 INTERACTION WITH PATIENT WHEN NECESSARY. ENCOURAGE TO PARTICIPATE IN GROUP FOR SOCIALIZATION AND EMOTIONAL SUPPORT, ENCOURAGE TO STAY AWAKE DURING THE DAY SO SHE SLEEPS BETTER DURING THE NIGHT. PROVIDE MEDICATIONS PRESCRIBED WITH EDUCATION ON EACH. Q15 MINUTE CHECKS MAINTAINED FOR SAFETY.
--- NOTE | 2018-07-02 11:39 | NUR ---
AM GROUP/EXERCISE PT DID NOT ATTEND MORNING GROUP THERAPY. PT WAS IN BED SLEEPING AND DID NOT WANT TO GET UP.
--- NOTE | 2018-07-02 11:40 | NUR ---
PER PHONE CALL FROM AUGUSTINE FROM [facility]. IP STAY APPORVED X 7 DAYS NRD 07/05. REF NUMBER [id number]
--- NOTE | 2018-07-02 12:35 | NUR ---
Shift chart check completed.
--- NOTE | 2018-07-02 13:45 | NUR ---
PT REPORTED LARGE 'HARD' BM TO STAFF. NOTIFIED. ABDOMINAL KUB CANCELLED. RADIOLOGY NOTIFIED.
--- NOTE | 2018-07-02 15:34 | NUR ---
PM GROUP/ART AND MUSIC PT ATTENDED AND PARTICIPATED IN GROUP BY WORKING ON SEVERAL ART PROJECTS AND LISTENING TO MUSIC. PT EXPRESSED NO SUICIDAL IDEATIONS DURING GROUP
[2018-07-02 20:00] VITALS: BP 116/58
--- NOTE | 2018-07-02 21:36 | NUR ---
24 HR chart check completed.
--- NOTE | 2018-07-02 21:40 | NUR ---
P-DEPRESSED I-PROVIDE 1:1 FOR VENTILATION OF FEELINGS & EMOTIONAL SUPPORT. ASSESS SUICIDAL FEELINGS. DISCUSS ALTERNATE COPING MODES. ADMINISTER MEDICATIONS, MONITOR SLEEP R-MOOD IS MILDLY DEPRESSED WITH A BRIGHTER AFFECT & MILD. STATED THAT SHE IS FEELING BETTER WHILE HERE ON THE UNIT & DENIES PRESENT SUICIDAL FEELINGS & CONTRACTS FOR SAFETY. STATED "I DONT LIKE THE IDEA OF GOING BACK TO THAT PLACE. THE THOUGHT IS A LITTLE SCARY". PT DID STATE THAT HER DAUGHTER TOLD HER SHE WOULD COME & GET HER & TAKE HER TO HER HOUSE OR TO HER FRIEND, CHRISTINE. COMPLIANT TAKING MEDICATIONS WHOLE. PT IS ALERT & ORIENTED X 4. HS BEDSIDE GLUCOSE WAS 283. RECEIVED 10 UNITS OF COVERAGE. NO SIGNS/SYMPTOMS OF HYPERGLYCEMIA NOTED. P-CONTINUE TO MONITOR & PROVIDE PHYSICAL & EMOTIONAL SUPPORT NEEDED. =
--- NOTE | 2018-07-03 05:42 | NUR ---
PT HAS SLEPT PAST 2129
--- NOTE | 2018-07-03 06:41 | NUR ---
AM BEDSIDE GLUCOSE 85
[2018-07-03 08:20] VITALS: BP 112/58
--- NOTE | 2018-07-03 10:00 | NUR ---
DR. OSORIO ON UNIT TO SEE PT.
--- NOTE | 2018-07-03 10:49 | NUR ---
P: NEGATIVE THOUGHT PROCESS IN REFERENCE TO GOING BACK HOME I: ENFORCE AND ENCOURAGE HER TO PRACTICE AND PLAN COPING SKILLS FOR WHEN SHE IS RETURNED TO HER HOME ENVIRONMENT. SUCH HOW TO HANDLE THE STRESS OF PEOPLE AROUND HER. R: PT STATED WHEN STRESSED SHE COULD CONTACT HER DAUGHTER OR HER BEST FRIEND OR GO TO THEIR HOME. P: CONTINUE TO HELP PT ADDRESS HER CONCERNS AND MONITOR FOR ANY CHANGES IN MENTAL HEALTH NO SI/HI OR DELUSIONS PRESENT, 15 MIN CHECKS MAINTAINED.
--- NOTE | 2018-07-03 11:41 | NUR ---
AM GROUP/EXERCISE AND COPING SKILLS PT ATTENDED AND PARTICIPATED IN GROUP BY DOING EXERCISES AND OPENLY DISCUSSING COPING SKILLS FOR LIFE STRESSORS. PT EXPRESSED NO SUICIDAL IDEATIONS DURING GROUP.
--- NOTE | 2018-07-03 15:33 | NUR ---
PM GROUP/MANICURES AND MUSIC PT ATTENDED GROUP AND CHOSE A BLACK HONG KONGER WITH SILVER GLITTER FOR HER NAILS. PT HAD A SMACK AND LISTENED TO THE MUSIC. PT EXPRESSED NO SUICIDAL IDEATIONS DURING GROUP
[2018-07-03 19:57] VITALS: BP 111/69
--- NOTE | 2018-07-04 03:22 | NUR ---
UP TO GET A DRINK. BSG DONE PRECAUTION. BSG 167
--- NOTE | 2018-07-04 04:06 | NUR ---
24 HR chart check completed.
--- NOTE | 2018-07-04 06:46 | NUR ---
PATIENT SLEPT 7 HOURS WITH ONE AWAKENING UP FOR 45 MINUTES, THEN RETURNED BACK TO BED.
[2018-07-04 07:20] VITALS: BP 108/72
--- NOTE | 2018-07-04 08:00 | NUR ---
Treatment Plan meeting with Dr. Easton, RN, AT, SW and Nuisance Wildlife Specialist. Plan for discharge Sunday. Pt. will return home.
--- NOTE | 2018-07-04 08:55 | NUR ---
DR. OSORIO ON UNIT TO ASSESS PATIENT.
--- NOTE | 2018-07-04 10:25 | NUR ---
PATIENT IS ALERT AND ORIENTED TO PERSON, PLACE, TIME AND SITUATION; ABLE TO VOICE NEEDS. MOOD IS STABLE; DENIES ANY HALLUCINATIONS, DELUSIONS, HI/SI OR PAIN. MEDICATION COMPLAINT WITH EDUCATION PROVIDED. Q 15 MINUTE SAFETY CHECKS MAINTAINED. PATIENT INTERACTIVE WITH STAFF AND OTHER PATIENTS. CURRENTLY IN DINING ROOM DURING GROUP, SLEEPING; DID NOT PARTICIPATE. INDEPENDENT WITH ACTIVITIES OF DAILY LIVING, CONTINENT OF BOWEL AND BLADDER, SET UP FOR MEALS, INTAKES ARE GOOD WITH ADEQUATE FLUIDS. AMBULATORY WITH STEADY GAIT. CONTINUE TO MONITOR MOOD AND VOICE THOUGHTS OF SI. PROVIDE ONE ON ONE TO EXPRESS EMOTIONS.
--- NOTE | 2018-07-04 11:37 | NUR ---
AM GROUP/EXERCISE AND ART PT WAS PRESENT FOR GROUP SLEEPING SITTING IN A CHAIR AND DID NOT PARTICIPATE IN EXERCISE. PT DID AWAKEN AND WORK ON THE ART PROJECT. PT EXPRESSED NO SUICIDAL IDEATIONS DURING GROUP
--- NOTE | 2018-07-04 15:10 | NUR ---
Left a voicemail message for pt's daughter Kelly requesting a return call.
--- NOTE | 2018-07-04 15:35 | NUR ---
Family meeting with pt's daughter Kelly Arshad via the phone. Kelly confirmed that pt will be returning to the same apartment, which is pt's primary stressor. However, Kelly is having [facility] draw up a letter to pt's landlord stating that all correspondence is to be with Kelly not the patient due to patient's fragile emotional state. Kelly is also working on other housing for patient. Kelly stated that patient has voiced hope to Kelly because patient recognizes that she will be moving soon. Discussed patient applying for disability. Kelly stated that she spoke to [facility] nursing and she is aware that the chart will need to go to patient's commercial real estate attorney.
--- NOTE | 2018-07-04 15:40 | NUR ---
PM GROUP/ART AND MUSIC THERAPY PT ATTENDED AND PARTICIPATED IN GROUP BY DOING SEVERAL PAINTINGS. PT WAS TALKATIVE AND ON TASK. PT EXPRESSED NO SUICIDAL IDEATIONS DURING GROUP
[2018-07-04 20:00] VITALS: BP 112/68
--- NOTE | 2018-07-04 21:17 | NUR ---
A&O X4. STABLE MOOD. CALM. NO HALLUCINATIONS OR DELUSIONS NOTED. DENIES SI. NO HI NOTED. PT HAD A GOOD CALL FROM DAUGHTER. MEDICATION COMPLIANT WITHOUT DIFFICULTY. MEDICATION EDUCATION COMPLETED WITH VERBALIZATION OF UNDERSTANDING. Q15 MINUTE SAFETY CHECKS MAINTAINED. SUICIDAL PRECAUTIONS MAINTAINED. SEE [facility] FLOWSHEET FOR SPECIFIC MONITORING.
[2018-07-05 07:46] VITALS: BP 131/89
--- NOTE | 2018-07-05 08:00 | NUR ---
Treatment Plan meeting with Dr. Easton, RN, AT, and Computer Information Systems Instructor. Plan for discharge Sunday. Pt. to return home.
--- NOTE | 2018-07-05 11:53 | NUR ---
PT IS TEARFUL THIS MORNING, STATES THAT SHE IS "DEPRESSED THAT I HAVE TO BE HERE FOR MOTHER'S DAY". PT ASSESSED FOR ORIENTATION LEVEL, MOOD, AND AFFECT. ASSESSED FOR HALLUCINATIONS AND DELUSIONS. ASSESSED FOR SLEEP QUALITY AND APPETITE. PT IS ORIENTED TO PERSON, PLACE, TIME, AND SITUATION. PT IS PLEASANT AND COOPERATIVE WITH MORNING ASSESSMENT. AFFECT IS APPROPRIATE. PT'S VERBAL RESPONSES APPROPRIATE TO CONTENT. PT STATES SHE HAS A DAUGHTER WHO HAS NOT SPOKEN TO HER SINCE ADMISSION, BUT HER DAUGHTER SHA IS VERY SUPPORTIVE OF HER SEEKING TREATMENT. PT ENCOURAGED TO USE COPING SKILLS TO DEAL WITH FAMILY STRESSORS, REASSURED, AND REDIRECTED. PT GIVEN CALM 1:1 AND PROVIDED WITH EMOTIONAL SUPPORT. PT DENIES SUICIDAL IDEATIONS, BUT STATES SHE HAS FLEETING THOUGHTS OF BUT "HAS NEVER TRIED TO DO ANYTHING ABOUT IT". PT VERBALLY CONTRACTED FOR SAFETY. ENCOURAGED TO VERBALIZE NEGATIVE THOUGHT PROCESSES TO STAFF THEY OCCUR. NO OVERT S/S OF ATTENDING TO INTERNAL STIMULI. NO OVERT PARANOIA/DELUSIONS PRESENT. PER OBSERVATIONS, PT HAS GOOD PO INTAKE. PT IS IN DAY ROOM WATCHING TV WITH PEERS AT THIS TIME. FALLING STAR PROGRAM MAINTAINED AT THIS TIME, Q 15 MIN MONITORING CONTINUED FOR SAFETY. WILL CONTINUE TO MONITOR PT'S MOOD AND AFFECT, WILL MONITOR FOR MEDICATION COMPLIANCE. CONTINUE CURRENT TREATMENT PLAN. WILL MONITOR FOR ANY CHANGES IN BEHAVIOR, PROVIDE EMOTIONAL SUPPORT AND 1:1 APPROPRIATE AND PARTICIPATION IN GROUP THERAPY/ACTIVITY FOR SOCIALIZATION AND SUPPORT. CONTINUE Q15 MIN MONITORING PER POLICY.
--- NOTE | 2018-07-05 14:08 | NUR ---
UPDATED CLINICALS FAXED TO [facility].
--- NOTE | 2018-07-05 16:38 | NUR ---
Shift chart check completed.
[2018-07-05 20:00] VITALS: BP 114/62
--- NOTE | 2018-07-06 05:58 | NUR ---
A&O X4. STABLE MOOD. CALM. NO HALLUCINATIONS OR DELUSIONS NOTED. DENIES SI. NO HI NOTED. PT HAD A GOOD CALL FROM DAUGHTER. MEDICATION COMPLIANT WITHOUT DIFFICULTY. MEDICATION EDUCATION COMPLETED WITH VERBALIZATION OF UNDERSTANDING. Q15 MINUTE SAFETY CHECKS MAINTAINED. SUICIDAL PRECAUTIONS MAINTAINED. SEE [facility] FLOWSHEET FOR SPECIFIC MONITORING.PT SLEPT APPROXIMATELY 8 HOURS THIS SHIFT.
[2018-07-06 07:39] VITALS: BP 114/63
[2018-07-06 07:40] VITALS: BP 114/63
--- NOTE | 2018-07-06 09:46 | NUR ---
PATIENT IS ALERT AND ORIENT TO PERSON, PLACE, TIME AND SITUATION; ABLE TO VOICE NEEDS. MOOD IS STABLE, UPLIFTED, PLEASANT DEMENANOR. DENIES ANY HALLUCINATIONS, DELUSIONS, HI/SI OR PAIN. MED[place]ITON COMPLAINT WITH EDUCATION PROVIDED. Q 15 MINUTE SAFETY CHECKS MAINTAINED. INTERACTIVE WITH STAFF AND OTHER PATIENTS. INDEPENDENT WITH ACTIVITIES OF DAILY LIVING, CONTINENT OF BOWEL AND BLADDER. SET UP FOR MEALS, INTAKES ARE GOOD WITH ADEQUATE FLUIDS. AMBULATORY WITH STEADY GAIT. CONTINUE TO MONITOR MOOD AND PROVIDE ONE ON ONE TO EXPRESS FEELING NEEDED.
--- NOTE | 2018-07-06 10:26 | NUR ---
DR. OSORIO ON UNIT TO ASSESS PATIENT.
--- NOTE | 2018-07-06 11:43 | NUR ---
AM GROUP/EXERCISES/AFFIRMATION BOX PT ATTENDED AND PARTICIPATED IN ALL GROUP ACTIVITY. PT PLEASANT AND ON TASK WITH NO S.I. EXPRESSED. PT EXPRESSING EXCITEMENT TO BE DISCHARGED TOMORROW FOR MOTHER'S DAY. PT WILL CONTINUE TO ATTEND AND PARTICIPATE IN FUTURE GRUOP SESSIONS UNTIL PT DISCHARGE.
--- NOTE | 2018-07-06 15:18 | NUR ---
Shift chart check completed..
--- NOTE | 2018-07-06 16:26 | NUR ---
PM GROUP/MUSIC/BIRDHOUSES PT ATTENDED AND PARTICIPATED DURING GROUP. THIS STAFF OVERHEARD PT TELLING A PEER "THIS MIGHT BE SILLY BUT I AM FEELING THE HAPPIEST I HAVE EVER BEEN". PT DID NOT EXPRESS ANY S.I. AT THIS TIME AND WILL CONTINUE TO ATTEND GROUPS UNTIL DISCHARGE SOMETIME TOMORROW.
[2018-07-06 20:00] VITALS: BP 115/65
--- NOTE | 2018-07-06 20:46 | NUR ---
A&O X4. STABLE MOOD. CALM. NO HALLUCINATIONS OR DELUSIONS NOTED. DENIES SI. NO HI NOTED. MEDICATION COMPLIANT WITHOUT DIFFICULTY. MEDICATION EDUCATION COMPLETED WITH VERBALIZATION OF UNDERSTANDING. Q15 MINUTE SAFETY CHECKS MAINTAINED. SUICIDAL PRECAUTIONS MAINTAINED. SEE [facility] FLOWSHEET FOR SPECIFIC MONITORING. PT INSTRUCTED ON HOW TO GIVE HERSELF INSULIN INJECTIONS. PT DEMONSTRATED UNDERSTANDING AND SAFETY SYRINGE USE.
--- NOTE | 2018-07-06 20:57 | NUR ---
24 HR chart check completed.
--- NOTE | 2018-07-07 05:43 | NUR ---
PT SLEPT APPROXIMATELY 7 HOURS THIS SHIFT. Q15 MINUTE SAFETY CHECKS MAINTAINED.
[2018-07-07 07:49] VITALS: BP 140/78
[2018-07-07] MEDS ORDERED: DULOXETINE HCL60 MG PO (08:35)
[2018-07-07] MEDS ORDERED: DULOXETINE HCL30 MG PO (08:35)
[2018-07-07] MEDS ORDERED: ATARAX,VISTARIL50 MG PO (08:35)
[2018-07-07] MEDS ORDERED: ROZEREM8 MG PO (08:35)
--- NOTE | 2018-07-07 09:05 | NUR ---
SPOKE WITH DR. GARSIA AT [phone] RE: PT DISCAHRGE FOR TODAY AND MEDICAL MEDS NEEDING COMPLETED. NO FURTHER ORDERS AT THIS TIME.
--- NOTE | 2018-07-07 10:53 | NUR ---
DR. OSORIO ON UNIT TO ASSESS PT, UPDATE PROVIDED.
--- NOTE | 2018-07-07 11:06 | NUR ---
DR. RAGLAND ON UNIT TO ASSESS PT.
--- NOTE | 2018-07-07 12:17 | NUR ---
PT DISCHARGED TO HOME VIA DAUGHTERS PRIVATE CAR. PT BELONGING AND DISCHARGE PACKET SENT WITH PT. ADVISED THAT D/C FREELANCE COPYWRITER WILL CALL PT ON SUNDAY WITH FOLLOW UP APPTS.
--- NOTE | 2018-07-08 12:35 | NUR ---
LATE ENTRY: Pt. discharged On Sunday. Follow Up appointments scheduled today. Call placed to Pt. Daughter Kelly Arshad and reviewed appointments 07/11/18 7:00 p.m. with Radha Juárez for Counseling, 07/30/18 11:15 a.m. with Thierno Ramirez [employer], Dr. Gavin Freeman PCP 07/16/18 11:30 a.m. Pt. daughter will transport patient to appointments. Discharge Paperwork faxed to [facility], Dr. Freeman. Call placed to Stefany Tejada [facility] to notify of discharge and return home .
== END 2018-07-07 12:19 | disposition home or self-care (01) | DRG 885 ==
LOC: ED 13:55 → 3N 17:59
PROVIDERS: Nurse Practitioner Family; ADMIT Psychiatry & Neurology Psychiatry
DX: F33.2 Major depressive disorder, recurrent severe without psychotic features (principal); E87.1 Hypo-osmolality and hyponatremia; R45.851 Suicidal ideations; Z68.41 Body mass index [BMI] 40.0-44.9, adult; R82.71 Bacteriuria; K21.9 Gastro-esophageal reflux disease without esophagitis; I10 Essential (primary) hypertension; E78.5 Hyperlipidemia, unspecified; E66.01 Morbid (severe) obesity due to excess calories; K59.09 Other constipation; E55.9 Vitamin D deficiency, unspecified; F34.1 Dysthymic disorder; R74.8 Abnormal levels of other serum enzymes; E11.65 Type 2 diabetes mellitus with hyperglycemia; Z79.4 Long term (current) use of insulin; Z88.8 Allergy status to other drugs, medicaments and biological substances; Z91.040 Latex allergy status; Z90.49 Acquired absence of other specified parts of digestive tract; Z82.49 Family history of ischemic heart disease and other diseases of the circulatory system; Z79.899 Other long term (current) drug therapy